=== PATIENT | male | born 1985 | race Caucasian/White ===

== ENCOUNTER 2017-03-15 04:19 | Emergency (ER) | payer OTHER ==
[2017-03-15 04:31] VITALS: TEMP 97.9; BMI 30.4
--- NOTE | 2017-03-15 04:41 | PDOC ---
History of Present Illness - General History Source: Patient Exam Limitations: No Limitations - History of Present Illness Initial Comments: 03/15/17 05:23 The patient is a 31 year old male with no significant past medical history who presents to the ED for 2 days of chest pain vs epigastric pain. Patient chest/ epigastric discomfort for the past 2 days. However, prior to going to sleep, he developed some discomfort to the epigastric and right upper quadrant region. He reports initially the discomfort felt like a pop sensation that subsequently turned into a burning sensation. States using marijuana, hoping his symptoms will improve, which has not. He also has complaints of SOB and diffuse numbness throughout his body, more in his lower extremities. Denies lightheadedness, diaphoresis, jaw pain, shoulder pain, arm pain, nausea, or vomiting. States he recently came back from [place] on Sunday. Denies any cocaine use The patient denies fever, chills, cough, abdominal pain, and diarrhea. Allergies: NKDA Social History: Marijuana use. No alcohol or tobacco use reported. Family History: Cardiac disease Past Surgical History: None reported PCP: None reported <Pam Song - Last Filed: 03/15/17 06:32> - General History Source: Patient <Hany Angulo - Last Filed: 03/15/17 19:17> - General Chief Complaint: Chest Pain Stated Complaint: CHEST PAIN/LEGS NUMB Time Seen by Provider: 03/15/17 04:41 Past History <Pam Song - Last Filed: 03/15/17 06:32> - Past Medical History GI Disorders: Yes (gerd) - Psycho/Social/Smoking Cessation Hx Suicidal Ideation: No Smoking History: Current every day smoker Have you smoked in the past 12 months: Yes Number of Cigarettes Smoked Daily: 1 Information on smoking cessation initiated: No Drug/Substance Use Hx: Yes (marijuana) Substance Use Type: Marijuana <Hany Angulo - Last Filed: 03/15/17 19:17> - Past Medical History Allergies/Adverse Reactions: Allergies Allergy/AdvReac Type Severity Reaction Status Date / Time No Known Allergies Allergy Verified 03/15/17 04:31 Home Medications: Ambulatory Orders NK [No Known Home Medication] 03/15/17 Review of Systems - Review of Systems Able to Perform ROS?: Yes Comments:: 03/15/17 05:23 CONSTITUTIONAL: Absent: fever, no chills, no fatigue EYES: Absent: visual changes ENT: Absent: ear pain, no sore throat CARDIOVASCULAR: +chest pain Absent: no palpitations RESPIRATORY: +SOB Absent: cough GI: +epigastric/right upper quadrant pain Absent: no nausea, no vomiting, no constipation, no diarrhea GENITOURINARY: Absent: dysuria, no frequency, no hematuria MUSCULOSKELETAL: Absent: back pain, no arthralgia, no myalgia SKIN: Absent: rash NEURO: +diffuse numbness throughout the body, more in the lower extremities Absent: headache <DuncanPam - Last Filed: 03/15/17 06:32> *Physical Exam - Vital Signs Last Vital Signs Temp Pulse Resp BP Pulse Ox 97.9 F 95 H 18 107/71 98 03/15/17 04:29 03/15/17 04:29 03/15/17 04:29 03/15/17 04:29 03/15/17 04:29 - Physical Exam Comments: 03/15/17 05:24 GENERAL: Well-appearing, well-nourished. No apparent distress. HEENT: Normocephalic, atraumatic. PERRL, EOM intact. CARDIOVASCULAR: Normal S1, S2. Regular rate and rhythm. PULMONARY: Clear to auscultation bilaterally. ABDOMEN: Soft, non-distended, non-tender. EXTREMITIES: Normal ROM in all four extremities. No gross deformities. SKIN: Warm, dry. No rash NEUROLOGICAL: No focal neurological deficits. <Pam Song - Last Filed: 03/15/17 06:32> - Vital Signs Last Vital Signs Temp Pulse Resp BP Pulse Ox 97.9 F 95 H 18 107/71 98 03/15/17 04:29 03/15/17 04:29 03/15/17 04:29 03/15/17 04:29 03/15/17 04:29 <Hany Angulo - Last Filed: 03/15/17 19:17> Heart Score/ECG Review - ECG Impressions Comment:: 03/15/17 05:30 NSR @97bpm Possible L atrial enlargement Borderline ECG <Pam Song - Last Filed: 03/15/17 06:32> ED Treatment Course - LABORATORY CBC & Chemistry Diagram: 03/15/17 04:45 03/15/17 04:45 - ADDITIONAL ORDERS Additional order review: Laboratory Results 03/15/17 04:45 INR 0.98 03/15/17 04:45 RBC 5.25 MCV 84.8 MCHC 33.2 RDW 13.4 MPV 9.8 Neutrophils % 55.5 Lymphocytes % 31.8 Monocytes % 10.5 H Eosinophils % 1.9 Basophils % 0.3 - RADIOLOGY Radiograph Interpretation: 03/15/17 06:33 EXAM: CT ABDOMEN AND PELVIS WITHOUT CONTRAST Reviewed by Imaging ceramic maker demonstrator: FINDINGS: Lung bases are clear. Kidneys show no focal stones. No hydronephrosis. No ureteral stones. No bladder calculi. Liver , gallbladder, spleen, pancreas and adrenal glands are unremarkable. Evaluation for parenchymal organ pathology is limited on non contrast imaging. Aorta is normal in caliber with no significant atherosclerosis. No lymphadenopathy based on size criteria. Next item several tiny mesenteric lymph nodes are present. Bowel appears unremarkable. Appendix is normal in caliber with tiny appendicolith distally. No free intraperitoneal fluid or gas. Small chronic fragmentation anteriorly along the right acetabulum and tiny ossification adjacent to the left acetabulum is present. Scattered degenerative changes throughout the spine are noted. Prostate contains a small calcification. Bladder is unremarkable. IMPRESSION: 1. Tiny appendicolith distally but no significant appendiceal dilatation or inflammation to suggest acute appendicitis. Correlate clinically and with laboratory values. 2. No renal or ureteral stones. - Medications Given in the ED: ED Medications Discontinued Medications Generic Name Dose Route Start Last Admin Trade Name Freq PRN Reason Stop Dose Admin Pantoprazole Sodium 40 mg/ 100 mls @ 200 mls/hr 03/15/17 04:43 03/15/17 04:54 Sodium Chloride IVPB 03/15/17 05:12 200 mls/hr ONCE ONE Administration <Pam Song - Last Filed: 03/15/17 06:32> - LABORATORY CBC & Chemistry Diagram: 03/15/17 04:45 03/15/17 04:45 <Hany Angulo - Last Filed: 03/15/17 19:17> Medical Decision Making - Medical Decision Making 03/15/17 19:17 Dr. Angulo: The scribe's documentation has been prepared under my direction and personally reviewed by me in its entirery. I confirm that the note above accurately reflects all work, treatment, procedures, and medical decision making performed by me. <Hany Angulo - Last Filed: 03/15/17 19:17> *DC/Admit/Observation/Transfer - Attestations Scribe Attestion: 03/15/17 05:24 Documentation prepared by Pam Song, acting as medical technologist generalist for Hany Angulo MD/DO. <Pam Song - Last Filed: 03/15/17 06:32> - Discharge Dispostion Admit: No <Hany Angulo - Last Filed: 03/15/17 19:17> Diagnosis at time of Disposition: Abdominal pain Qualifiers: Abdominal location: upper abdomen, unspecified Qualified Code(s): R10.10 - Upper abdominal pain, unspecified - Discharge Dispostion Disposition: HOME Condition at time of disposition: Stable - Patient Instructions Printed Discharge Instructions: DI for Abdominal Pain-Adult Additional Instructions: Return to the emergency department immediately with ANY new, persistent or worsening symptoms. Continue any medications as previously prescribed by your physician. You should follow up with your primary doctor as soon as possible regarding today's emergency department visit. . Please make sure your doctor reviews the results of your emergency evaluation. Thank you for coming to the Emergency Department today for your care. It was a pleasure to see you today. Please note that your evaluation is INCOMPLETE until you follow-up with your doctor. - Post Discharge Activity Work/School Note: Back to Work
[2017-03-15] MEDS ORDERED: PANTOPRAZOLE SODIUM 40 MG in SODIUM CHLORIDE 100 ML IVPB ONE (04:43)
[2017-03-15] MEDS ORDERED: PANTOPRAZOLE SODIUM 100 ML IVPB ONE (04:51)
[2017-03-15 05:02] LABS: BASOPHIL 0.3 % (0-2.0); EOSINOPHIL 1.9 % (0-4.5); MCH 28.1 pg (25.7-33.7); MCHC 33.2 g/dl (32.0-35.9); MEAN CELL VOLUME 84.8 fl (80-96); MEAN PLT VOLUME 9.8 fl (7.5-11.1); NEUTROPHILS 55.5 % (42.8-82.8); PLATELET COUNT 176 K/MM3 (134-434); RDW 13.4 % (11.9-15.9); WHITE BLOOD COUNT 8.4 K/mm3 (4.0-10.0)
[2017-03-15 05:12] LABS: INR 0.98 (0.82-1.09); PROTHROMBIN TIME (PATIENT) 10.8 SEC (9.98-11.88)
[2017-03-15 05:23] LABS: ALBUMIN 3.8 g/dl (3.4-5.0); ANION GAP 10 (8-16); BILIRUBIN,TOTAL 0.2 mg/dL (0.2-1.0); CALCIUM 8.4 mg/dL (8.5-10.1); CO2 29 mmol/L (21-32); COCKROFT - GAULT 108.97; CREATININE 1.2 mg/dL (0.7-1.3); GLUCOSE,RANDOM 124 mg/dL (74-106); MAGNESIUM 2.2 mg/dL (1.8-2.4); SGOT/AST 40 U/L (15-37); SGPT/ALT 73 U/L (12-78); TOT PROT 6.5 g/dl (6.4-8.2)
[2017-03-15 05:25] LABS: ALK PHOS 83 U/L (45-117); TROPONIN I < 0.02 ng/ml (0.00-0.05)
--- NOTE | 2017-03-15 07:30 | PDOC ---
*Physical Exam - Vital Signs Last Vital Signs Temp Pulse Resp BP Pulse Ox 97.9 F 95 H 18 107/71 98 03/15/17 04:29 03/15/17 04:29 03/15/17 04:29 03/15/17 04:29 03/15/17 04:29 ED Treatment Course - LABORATORY CBC & Chemistry Diagram: 03/15/17 04:45 03/15/17 04:45 - ADDITIONAL ORDERS Additional order review: Laboratory Results 03/15/17 03/15/17 03/15/17 04:45 04:45 04:45 INR 0.98 D-Dimer < 200 Sodium 143 Potassium 3.7 Chloride 104 Carbon Dioxide 29 Anion Gap 10 BUN 17 Creatinine 1.2 Creat Clearance w eGFR > 60 Random Glucose 124 H Calcium 8.4 L Magnesium 2.2 Total Bilirubin 0.2 AST 40 H ALT 73 Alkaline Phosphatase 83 Creatine Kinase 299 Creatine Kinase Index 0.9 CK-MB (CK-2) 2.732 Troponin I < 0.02 Total Protein 6.5 Albumin 3.8 Lipase 165 03/15/17 04:45 RBC 5.25 MCV 84.8 MCHC 33.2 RDW 13.4 MPV 9.8 Neutrophils % 55.5 Lymphocytes % 31.8 Monocytes % 10.5 H Eosinophils % 1.9 Basophils % 0.3 - Medications Given in the ED: ED Medications Discontinued Medications Generic Name Dose Route Start Last Admin Trade Name Freq PRN Reason Stop Dose Admin Pantoprazole Sodium 40 mg/ 100 mls @ 200 mls/hr 03/15/17 04:43 03/15/17 04:54 Sodium Chloride IVPB 03/15/17 05:12 200 mls/hr ONCE ONE Administration Medical Decision Making - Medical Decision Making 03/15/17 07:20 I received this patient in sign out He is a 31 yo M with a history of GERD He presents to the ER with a complaint of epigastric and RUQ pain No nausea or vomiting Laboratory Tests 03/15/17 03/15/17 03/15/17 04:45 04:45 04:45 WBC 8.4 Hgb 14.8 Hct 44.5 Plt Count 176 Neutrophils % 55.5 Lymphocytes % 31.8 D-Dimer < 200 Creatine Kinase 299 CK-MB (CK-2) 2.732 Troponin I < 0.02 Albumin 3.8 Lipase 165 \ CT was read as: Appendicilith, mesenteric adenitis, no signs of appendicitis Plan is to await official CT read 03/15/17 09:12 CT officially read as no evidence of acute appendicitis. No evidence of mesenteric adenitis. Will discharged home. Last patient follow up with his primary care physician. Return to the ER for any other concerns or complaints Given copies of his CT scan for his review Impression: Abdominal pain *DC/Admit/Observation/Transfer Diagnosis at time of Disposition: Abdominal pain Qualifiers: Abdominal location: upper abdomen, unspecified Qualified Code(s): R10.10 - Upper abdominal pain, unspecified - Discharge Dispostion Disposition: HOME Condition at time of disposition: Stable Admit: No - Patient Instructions Printed Discharge Instructions: DI for Abdominal Pain-Adult Additional Instructions: Return to the emergency department immediately with ANY new, persistent or worsening symptoms. Continue any medications as previously prescribed by your physician. You should follow up with your primary doctor as soon as possible regarding today's emergency department visit. . Please make sure your doctor reviews the results of your emergency evaluation. Thank you for coming to the Emergency Department today for your care. It was a pleasure to see you today. Please note that your evaluation is INCOMPLETE until you follow-up with your doctor. - Post Discharge Activity Work/School Note: Back to Work
[2017-03-15 09:57] VITALS: BP 114/84; PULSE 70
--- NOTE | 2017-03-15 10:30 | EKG ---
Test Reason : Blood Pressure : / mmHG Vent. Rate : 097 BPM Atrial Rate : 097 BPM P-R Int : 138 ms QRS Dur : 090 ms QT Int : 364 ms P-R-T Axes : 069 054 031 degrees QTc Int : 462 ms NORMAL SINUS RHYTHM POSSIBLE LEFT ATRIAL ENLARGEMENT BORDERLINE ECG NO PREVIOUS ECGS AVAILABLE Confirmed by AMANDA BYERS, JIGNA ([id number]) on 03/15/2017 10:29:46 AM Referred By: Confirmed By:JIGNA PATEL MD
== END 2017-03-15 09:58 | disposition home or self-care (01) ==
LOC: JER 04:19
PROC: 3E033GC Introduction of Other Therapeutic Substance into Peripheral Vein, Percutaneous Approach (ICD-10-PCS; principal; 2017-03-15)
DX: R10.10 Upper abdominal pain, unspecified (principal)
CPT/HCPCS: 36415; 74176-TC; 80053; 82550; 82553; 83690; 83735; 84484; 85025; 85379; 85610; 93005; 93010; 99283-25